=== PATIENT | male | born 1935 | race Caucasian/White ===

== ENCOUNTER 2021-06-09 19:42 | Emergency (ER) | payer MEDICARE ==
[~2021-06-09 19:42] MED LIST: LOPRESSOR 25 MG25 MG PO; LOTREL 10-20 M1 EACH PO
[2021-06-09] MEDS ORDERED: HYDROCODON-ACE1 EAC4 PO (22:18)
[2021-07-26] MEDS ORDERED: WARFARIN SODIUM2 MG PO (17:46)
[2021-07-26] MEDS ORDERED: WARFARIN SODIUM4 MG PO (17:47)
[2021-08-09] MEDS ORDERED: ISOSORBIDE MONO30 MG PO (17:45)
== END 2021-06-09 23:45 | disposition home or self-care (01) ==
LOC: ER1 19:42
DX: S70.01XA Contusion of right hip, initial encounter (principal); E11.9 Type 2 diabetes mellitus without complications; I25.10 Atherosclerotic heart disease of native coronary artery without angina pectoris; W18.30XA Fall on same level, unspecified, initial encounter; Y92.009 Unspecified place in unspecified non-institutional (private) residence as the place of occurrence of the external cause
CPT/HCPCS: 71101; 73502; 73564; 93005; 99284

== ENCOUNTER 2021-08-15 13:18 | Inpatient (IN) | payer MEDICARE ==
[~2021-08-15] VITALS: Ht 175.3 cm; Wt 102.1 kg
[~2021-08-15 13:18] MED LIST changes: +HYDROCODON-ACE1 EAC4 PO; +ISOSORBIDE MONO30 MG PO; +WARFARIN SODIUM2 MG PO; +WARFARIN SODIUM4 MG PO
[2021-08-15 14:00] LABS: RED BLOOD COUNT 4.74 M/UL (4.20-5.50)
[2021-08-15] MEDS ORDERED: ALBUTEROL2.5 MG/3 M INH (20:18)
[2021-08-16 03:23] LABS: HEMOGLOBIN 13.6 gm/dl (14.0-17.5); RED BLOOD COUNT 4.77 M/UL (4.20-5.50); WHITE BLOOD COUNT 11.5 K/UL (4.5-11.0)
--- NOTE | 2021-08-16 13:19 | NUR ---
(UNIQUE CORNEJO) SPOKE WITH DR. TREJO REGUARDING CODE STATUS VIA TELEPHONE. (UNIQUE) STATED HER " HAS HAD A GOOD LIFE AND IF SOMETHING WERE TO HAPPEN SHE DID NOT WANT HIM TO BE A VEGETABLE." EXPRESSED HER WISHES FOR PATIENT TO BE DNR TO DR. MELANY GOODWIN SPOKE WITH NURSE (ME). NEW ORDERS: CHANGE STATUS TO DNR.
[2021-08-17 04:05] LABS: RED BLOOD COUNT 5.24 M/UL (4.20-5.50); WHITE BLOOD COUNT 13.6 K/UL (4.5-11.0)
[2021-08-17 04:19] LABS: BUN/CREATININE RATIO 24 (0-10)
[2021-08-18 03:43] LABS: HEMOGLOBIN 13.8 gm/dl (14.0-17.5); RED BLOOD COUNT 4.87 M/UL (4.20-5.50); WHITE BLOOD COUNT 12.9 K/UL (4.5-11.0)
[2021-08-18 04:03] LABS: BUN/CREATININE RATIO 22 (0-10)
--- NOTE | 2021-08-19 02:46 | NUR ---
PT BLOOD PRESSURE WAS 180/72 MANUAL CUFF @ 0246. PT HAS A TREMOR AND FIDGETS DURING VITAL ASSESSMENT MAKING IT DIFFICULT FOR COMPLETE ACCURCY. WILL CONTINUE TO ASSESS PT.
[2021-08-23 20:08] LABS: HEMOGLOBIN 14.8 gm/dl (14.0-17.5); RED BLOOD COUNT 5.19 M/UL (4.20-5.50)
[2021-08-23 20:35] LABS: BUN/CREATININE RATIO 29 (0-10)
[2021-08-24 06:57] LABS: HEMOGLOBIN 14.6 gm/dl (14.0-17.5); RED BLOOD COUNT 5.21 M/UL (4.20-5.50); WHITE BLOOD COUNT 7.8 K/UL (4.5-11.0)
[2021-08-24 07:48] LABS: BUN/CREATININE RATIO 28 (0-10)
== END 2021-08-24 16:30 | DRG 884 ==
LOC: ER1 13:18 → M/S 16:43 → CDU 16:43 → M/S 18:14
PROVIDERS: Emergency Medicine; Internal Medicine; Physician Assistant; Physician Assistant Medical; ADMIT Internal Medicine
PROC: B24BZZ4 Ultrasonography of Heart with Aorta, Transesophageal (ICD-10-PCS; principal; 2021-08-18)
DX: F03.90 Unspecified dementia, unspecified severity, without behavioral disturbance, psychotic disturbance, mood disturbance, and anxiety (principal); N17.9 Acute kidney failure, unspecified; E78.5 Hyperlipidemia, unspecified; Z20.822 Contact with and (suspected) exposure to COVID-19; L89.312 Pressure ulcer of right buttock, stage 2; R53.81 Other malaise; I07.1 Rheumatic tricuspid insufficiency; E66.9 Obesity, unspecified; F10.10 Alcohol abuse, uncomplicated; I12.9 Hypertensive chronic kidney disease with stage 1 through stage 4 chronic kidney disease, or unspecified chronic kidney disease; N18.30 Chronic kidney disease, stage 3 unspecified; I34.0 Nonrheumatic mitral (valve) insufficiency; W01.0XXA Fall on same level from slipping, tripping and stumbling without subsequent striking against object, initial encounter; M06.9 Rheumatoid arthritis, unspecified; Z96.652 Presence of left artificial knee joint; I49.5 Sick sinus syndrome; Z95.0 Presence of cardiac pacemaker; Z79.01 Long term (current) use of anticoagulants; Z95.2 Presence of prosthetic heart valve; Y92.091 Bathroom in other non-institutional residence as the place of occurrence of the external cause; Z74.01 Bed confinement status; Z88.8 Allergy status to other drugs, medicaments and biological substances; Z81.8 Family history of other mental and behavioral disorders; Z68.33 Body mass index [BMI] 33.0-33.9, adult
CPT/HCPCS: ECHO; 36415; 36600; 70450; 71045; 72070; 72100; 73502; 80048; 80053; 82550; 82553; 82728; 82803; 83605; 83690; 83735; 83874; 83880; 84100; 84439; 84443; 84484; 85025; 85027; 85379; 85610; 86140; 87040; 93005; 93306; 93880; 97110; 97110-GP-CQ; 97116; 97162; 97166; 97530; 97530-GP-CQ; 99285; G0378; U0002

== ENCOUNTER → 2021-12-29 | Outpatient (CLI) | payer MEDICARE ==
[~2021-12-29] MED LIST changes: +ALBUTEROL2.5 MG/3 M INH
[2021-12-29 19:09] LABS: HEMOGLOBIN 13.2 gm/dl (14.0-17.5); RED BLOOD COUNT 4.55 M/UL (4.20-5.50); WHITE BLOOD COUNT 12.2 K/UL (4.5-11.0)
[2021-12-29 19:25] LABS: BUN/CREATININE RATIO 21 (0-10)
[2021-12-31 11:12] LABS: CREATININE, URINE 172.6 mg/dL (Not Estab.)
== END ==
LOC: RAD 17:02
PROVIDERS: Internal Medicine
DX: M54.50 Low back pain, unspecified (principal); R06.02 Shortness of breath; I25.10 Atherosclerotic heart disease of native coronary artery without angina pectoris; J44.9 Chronic obstructive pulmonary disease, unspecified; E11.9 Type 2 diabetes mellitus without complications; E78.5 Hyperlipidemia, unspecified; I10 Essential (primary) hypertension; Z79.899 Other long term (current) drug therapy; Z79.01 Long term (current) use of anticoagulants; M85.89 Other specified disorders of bone density and structure, multiple sites
CPT/HCPCS: 36415; 71046; 72110; 80053; 80061; 82043; 82570; 83036; 84439; 84443; 85025; 85610

== ENCOUNTER 2022-06-27 15:27 | Emergency (ER) | payer MEDICARE ==
[2022-06-27 16:11] LABS: HEMOGLOBIN 14.2 gm/dl (14.0-17.5); RED BLOOD COUNT 4.85 M/UL (4.20-5.50); WHITE BLOOD COUNT 15.7 K/UL (4.5-11.0)
[2022-06-27 16:34] LABS: BUN/CREATININE RATIO 29 (0-10)
== END 2022-06-27 18:08 | disposition left against medical advice (07) ==
LOC: ER1 15:27
DX: R07.9 Chest pain, unspecified (principal); R12 Heartburn; J44.9 Chronic obstructive pulmonary disease, unspecified; E11.9 Type 2 diabetes mellitus without complications; I11.9 Hypertensive heart disease without heart failure; E78.5 Hyperlipidemia, unspecified; Z88.4 Allergy status to anesthetic agent
CPT/HCPCS: 71045; 80053; 82550; 82553; 84484; 85025; 93005; 99281